=== PATIENT | female | born 1995 | race Hispanic/Latino ===

== ENCOUNTER 2017-09-15 21:51 | Emergency (ER) | payer OTHER, SELFPAY ==
[2017-09-15 22:59] LABS: Absolute Lymphocytes (CBC) 1.7 K/uL (0.7-4.9); Absolute Monocytes 0.6 K/uL (0.1-1.3); Absolute Neutrophil 7.7 K/uL (1.8-8.0); Basophils % 0.3 % (0-1.3); Eosinophils % 0.6 % (0-4.4); Hematocrit 38.7 % (36.0-45.0); Lymphocytes % 17.1 % (15.3-44.8); MCH 29.4 pg (27.0-35.0); MCV 87.8 fL (80-100); MPV 9.7 fL (7.6-11.3); Monocytes % 6.3 % (3.3-12.3); RBC Red Blood Cell Count 4.41 M/uL (3.86-4.86)
[2017-09-15 23:00] LABS: Urine Blood 2+ (NEG); Urine Glucose NEGATIVE (NEG); Urine Protein NEGATIVE (NEG)
[2017-09-15 23:09] LABS: Bicarbonate 23 mEq/L (21-31); Glucose Level 82 mg/dL (65-120); Potassium 3.4 mEq/L (3.6-5.0); Sodium Level 136 mEq/L (135-145)
[2017-09-15 23:10] LABS: BUN Blood Urea Nitrogen 7 mg/dL (6-20)
[2017-09-15] MEDS ORDERED: POTASSIUM 25 MEQ EFFERV TAB ONE (23:55)
--- NOTE | 2017-09-16 00:09 | ER ---
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 States she has not been seen by an OB for this yet bc she is waiting for her insurance. Transition of care: patient was not received from another setting of care. Onset of symptoms was September 15, 2017. Risk Assessment: Do you want to hurt yourself or someone else? Patient reports no desire to harm self or others. Initial Sepsis Screen: Does the patient meet any 2 criteria? No. Patient's initial sepsis screen is negative. Does the patient have a suspected source of infection? No. Patient's initial sepsis screen is negative. Care prior to arrival: None. 22:02 Method Of Arrival: Ambulatory aa1 22:02 Acuity: GRISEL 3 aa1 Triage Assessment: 22:04 General: Appears in no apparent distress. comfortable, Behavior is calm, cooperative, aa1 appropriate for age. 22:38 Pain: Complains of pain in abd cramping. Neuro: No deficits noted. Level of rk2 Consciousness is alert, obeys commands, Oriented to person, place, time, situation. Respiratory: Airway is patent Respiratory effort is even, unlabored, Respiratory pattern is regular, symmetrical. GI: Reports cramping. Derm: Skin is pink, warm \T\ dry. 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 - Social history:: Smoking status: Patient/guardian denies using tobacco. - Ebola Screening: : No symptoms or risks identified at this time. Screenin:37 Abuse screen: Denies threats or abuse. Nutritional screening: No deficits noted. rk2 Tuberculosis screening: No symptoms or risk factors identified. Fall Risk None identified. Assessment: 22:40 GI: Bowel sounds Abd is soft. rk2 23:30 Reassessment: Patient appears in no apparent distress at this time. No changes from rk2 previously documented assessment. Patient and/or family updated on plan of care and expected duration. Pain level reassessed. No needs voiced \T\ this time. Vital Signs: 22:04 BP 109 / 74; Pulse 76; Resp 16; Temp 97.1; Pulse Ox 100% on R/A; Weight 53.98 kg; Pain aa1 06/15; 09/16 00:10 BP 109 / 74; Pulse 77; Resp 17; Pulse Ox 99% on R/A; rk2 ED Course: 09/15 21:52 Patient arrived in ED. am2 22:01 Asher Martin PA is PHCP. cp 22:01 Onur Villarreal MD is Attending Physician. cp 22:04 Triage completed. aa1 22:04 Zofia Mayes, RN is Primary Nurse. rk2 22:04 Arm band placed on right wrist. Patient placed in an exam room, on a stretcher. aa1 22:37 Patient has correct armband on for positive identification. Bed in low position. Call rk2 light in reach. 22:46 US Transvaginal Ob Sent. rk2 22:52 Ultrasound completed. Patient tolerated well. sg3 22:52 Notified TIMBER MANAGEMENT SPECIALIST/RUBI martin. sg3 23:12 US Transvaginal Ob In Process Unspecified. EDMS 09/16 00:41 No provider procedures requiring assistance completed. IV discontinued. rk2 Administered Medications: 09/15 23:54 CANCELLED (order changed): Potassium Chloride 20 mEq PO once rk2 23:54 Drug: Potassium Effervescent Tablet 25 mEq Route: PO; rk2 09/16 00:42 Follow up: Response: No adverse reaction rk2 Outcome: 00:09 Discharge ordered by . cp 00:41 Discharged to home ambulatory. rk2 00:41 Condition: good 00:41 Discharge instructions given to patient, Prescriptions given X 1. 00:43 Patient left the ED. rk2 Signatures: Dispatcher [employer] EDElizabeth Singh, RN RN aa1 Asher Martin PA PA cp Moreno, Amanda am2 Astrid Davies 3 Zofia Mayes RN RN rk2
--- NOTE | 2017-09-16 00:10 | EDPHYS ---
Physician Documentation [facility] Name: Elham Barnard Age: 21 yrs Sex: Female : 1995 Arrival Date: 09/15/2017 Time: 21:52 Bed 27 Private MD: ED Physician Onur Villarreal HPI: 09/15 22:26 This 21 yrs old Female presents to ER via Ambulatory with complaints of cp Abdominal Cramping, Vaginal Bleeding, + Preg <12wks. 22:26 The patient presents to the emergency department with abdominal pain, of the suprapubic cp area. 22:26 The estimated gestational age is 8 weeks. course: care: none, cp Ultrasound: the patient has not had an ultrasound. Previous pregnancies: the patient has never been . Associated signs and symptoms: Pertinent positives: vaginal bleeding, Pertinent negatives: chest pain, dysuria, fever, nausea, shortness of breath, vomiting. 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 Patient report history of left ovarian cyst but no f/u. 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 - Social history:: Smoking status: Patient/guardian denies using tobacco. - Ebola Screening: : No symptoms or risks identified at this time. ROS: 22:30 Constitutional: Negative for body aches, chills, fever, poor PO intake. cp 22:30 Eyes: Negative for injury, pain, redness, and discharge. cp 22:30 ENT: Negative for drainage from ear(s), ear pain, sore throat, difficulty swallowing, difficulty handling secretions. 22:30 Cardiovascular: Negative for chest pain, edema, palpitations. 22:30 Respiratory: Negative for cough, shortness of breath, wheezing. 22:30 Abdomen/GI: Positive for abdominal cramps, of the right lower quadrant and left lower quadrant, Negative for vomiting, diarrhea, constipation, anorexia, dysphagia, black/tarry stool, rectal bleeding. 22:30 : Positive for vaginal bleeding, Negative for urinary symptoms. 22:30 Skin: Negative for cellulitis, rash. 22:30 Neuro: Negative for altered mental status, headache, syncope, near syncope, weakness. 22:30 All other systems are negative. Exam: 22:35 Constitutional: The patient appears in no acute distress, alert, awake, non-toxic, well cp developed, well nourished. 22:35 Head/Face: Normocephalic, atraumatic. cp 22:35 Eyes: Periorbital structures: appear normal, Conjunctiva: normal, no exudate, no injection, Sclera: no appreciated abnormality, Lids and lashes: appear normal, bilaterally. 22:35 ENT: External ear(s): are unremarkable, Nose: is normal, Mouth: Lips: moist, Oral mucosa: pink and intact, moist, Posterior pharynx: is normal, airway is patent, no erythema, no exudate. 22:35 Chest/axilla: Inspection: normal, Palpation: is normal, no crepitus, no tenderness. 22:35 Cardiovascular: Rate: normal, Rhythm: regular, Heart sounds: murmur, not appreciated. 22:35 Respiratory: the patient does not display signs of respiratory distress, Respirations: normal, no use of accessory muscles, no retractions, no splinting, no tachypnea, Breath sounds: are clear throughout, no decreased breath sounds, no stridor, no wheezing. 22:35 Abdomen/GI: Inspection: abdomen appears normal, Bowel sounds: active, all quadrants, Palpation: soft, in all quadrants, mild abdominal tenderness, in the suprapubic area, right lower quadrant and left lower quadrant, rebound tenderness, is not appreciated, voluntary guarding, is not appreciated, involuntary guarding, is not appreciated. 22:35 Back: pain, is absent, ROM is normal. 22:35 Skin: cellulitis, is not appreciated, no rash present. Vital Signs: 22:04 BP 109 / 74; Pulse 76; Resp 16; Temp 97.1; Pulse Ox 100% on R/A; Weight 53.98 kg; Pain aa1 06/15; 09/16 00:10 BP 109 / 74; Pulse 77; Resp 17; Pulse Ox 99% on R/A; rk2 MDM: 09/15 22:02 Patient medically screened. 22:30 Differential diagnosis: STD, threatened Ab, inevitable Ab, retained Ab, ectopic cp . 09/16 00:05 Data reviewed: vital signs, nurses notes, lab test result(s), radiologic studies, cp ultrasound, and as a result, I will discharge patient. 00:05 Counseling: I had a detailed discussion with the patient and/or guardian regarding: the cp historical points, exam findings, and any diagnostic results supporting the discharge/admit diagnosis, lab results, radiology results, the need for outpatient follow up, an OB/Gyne specialist, to return to the emergency department if symptoms worsen or persist or if there are any questions or concerns that arise at home. ED course: VSS. Discussed results of US and labs. Will discharge to home for continued monitoring. 09/15 22:24 Order name: Quantitative Hcg; Complete Time: 00:01 09/16 00:01 Interpretation: Reviewed. 09/15 22:24 Order name: Abo/rh Typing; Complete Time: 23:39 09/15 22:24 Order name: Basic Metabolic Panel; Complete Time: 00:01 09/16 00:01 Interpretation: Normal except: K 3.4. 09/15 22:24 Order name: CBC with Diff; Complete Time: 23:39 09/15 23:39 Interpretation: Normal except: DAVONTE% 75.7. 09/15 22:26 Order name: Urine Dipstick--Ancillary (enter results); Complete Time: 23:06 [facility] 09/16 00:01 Interpretation: Normal except: UBLD 2+. 09/15 22:26 Order name: Urine --Ancillary (enter results); Complete Time: 23:06 [facility] 09/15 22:24 Order name: Urine Test (obtain specimen); Complete Time: 22:27 09/15 22:24 Order name: IV Saline Lock; Complete Time: 22:36 09/15 22:24 Order name: Labs collected and sent; Complete Time: 22:36 09/15 22:24 Order name: NPO; Complete Time: 22:27 09/15 22:24 Order name: Urine Dipstick-Ancillary (obtain specimen); Complete Time: 22:27 cp 09/15 22:42 Order name: US Transvaginal Ob cp Administered Medications: 09/15 23:54 CANCELLED (order changed): Potassium Chloride 20 mEq PO once rk2 23:54 Drug: Potassium Effervescent Tablet 25 mEq Route: PO; rk2 09/16 00:42 Follow up: Response: No adverse reaction rk2 Disposition: 01:40 Co-signature as Attending Physician, Onur Villarreal MD. pkjuan Disposition: 09/16/17 00:09 Discharged to Home. Impression: Threatened , Unspecified ovarian cysts - Left. - Condition is Stable. - Discharge Instructions: Medicines During , Ovarian Cyst, Threatened Miscarriage, Pelvic Rest. - Prescriptions for Vitamin 27- 0.8 mg Oral Tablet - take 1 tablet by ORAL route once daily; 60 tablet. - Medication Reconciliation Form, Thank You Letter, Antibiotic Education, Prescription Opioid Use form. - Follow up: Private Physician; When: 1 week; Reason: Recheck today's complaints. - Problem is new. - Symptoms have improved. Signatures: Dispatcher [employer] EDElizabeth Singh, RN RN aa1 Onur Villarreal MD MD pkl Asher Martin PA PA cp Zofia Mayes RN RN rk2 Corrections: (The following items were deleted from the chart) 09/15 23:54 23:39 Potassium Chloride Liquid 20 mEq PO once ordered. cp rk2 09/16 00:11 00:09 09/16/2017 00:09 Discharged to Home. Impression: Threatened . Condition cp is Stable. Forms are Medication Reconciliation Form, Thank You Letter, Antibiotic Education, Prescription Opioid Use. Follow up: Private Physician; When: 1 week; Reason: Recheck today's complaints. Problem is new. Symptoms have improved. cp 00:43 00:11 09/16/2017 00:09 Discharged to Home. Impression: Threatened ; Unspecified rk2 ovarian cysts - Left. Condition is Stable. Discharge Instructions: Medicines During , Threatened Miscarriage, Pelvic Rest, Ovarian Cyst. Prescriptions for Vitamin 27-0.8 mg Oral Tablet - take 1 tablet by ORAL route once daily; 60 tablet. and Forms are Medication Reconciliation Form, Thank You Letter, Antibiotic Education, Prescription Opioid Use. Follow up: Private Physician; When: 1 week; Reason: Recheck today's complaints. Problem is new. Symptoms have improved. cp
--- NOTE | 2017-09-16 08:01 | RAD REPORT ---
EXAM DESCRIPTION: US - Transvaginal OB - 09/15/2017 11:11 pm CLINICAL HISTORY: with abdominal pain and vaginal bleeding COMPARISON: None. FINDINGS: The uterus 10 x 5 x 7 centimeters. A gestational sac is present within the endometrium. W ithin this is a yolk sac and pole with a crown-rump length 1.6 centimeters. Cardiac activity 14 6 beats per minute. A mucus plug is present within the cervix. A 4.2 left ovarian cyst is seen. The right ovary was not visualized. A small amount of free fluid is present IMPRESSION: Single live intrauterine with an estimated gestational age 8 weeks 0 days CR 04/27/2018
== END 2017-09-16 00:43 | disposition home or self-care (01) ==
LOC: ER 21:51
DX: O20.0 Threatened abortion (principal); N83.202 Unspecified ovarian cyst, left side
CPT/HCPCS: 36415; 76817; 80048; 81003; 81025; 84702; 85025; 86900; 86901; 99283

== ENCOUNTER 2018-04-24 09:29 | Inpatient (IN) | payer OTHER, SELFPAY ==
[2018-04-24] MEDS ORDERED: PROMETHAZINE 25 MG/ML VIAL IM PRN ×2 (16:27)
[2018-04-24] MEDS ORDERED: CARBOPROST TROME 250 MCG/ML IM PRN (16:27)
[2018-04-24] MEDS ORDERED: BUTORPHANOL 1 MG/ML INJ IV PRN (16:27)
[2018-04-24] MEDS ORDERED: Ringers Lactate 1,000 ML IV PRN (16:27)
[2018-04-24] MEDS ORDERED: MEPERIDINE HCL 25 MG/0.5 ML IV PRN (16:27)
[2018-04-24] MEDS ORDERED: METHYLERGONOVINE 0.2MG/ML AMP IM PRN (16:27)
[2018-04-24] MEDS ORDERED: Ringers Lactate 1,000 ML IV ONE (16:42)
[2018-04-24] MEDS ORDERED: Ringers Lactate 1,000 ML IV SCH (17:00)
[2018-04-24] MEDS ORDERED: OXYTOCIN/LR 20 UNIT/1,000 ML BAG IV SCH (17:00)
[2018-04-24 17:07] LABS: RPR Titer ND
[2018-04-24 17:17] LABS: Urine Appearance CLEAR; Urine Bilirubin NEGATIVE (NEG); Urine Blood NEGATIVE (NEG); Urine Color YELLOW; Urine Glucose NEGATIVE (NEG); Urine Protein NEGATIVE (NEG); Urine Urobilinogen 0.2 mg/dL (0.2-1.0); Urine pH 6.5 (5.0-7.0)
[2018-04-24 17:53] LABS: Urine Microscopic Reflex ORDER UMIC
[2018-04-24 18:00] LABS: Urine Bacteria 20-50 /HPF (<20); Urine Culture Reflex Order REFLEXED; Urine RBC <5 /HPF (NONE SEEN)
[2018-04-24] MEDS ORDERED: miSOPROStol 100 MCG TAB VAG SCH ×2 (18:00→23:00)
[2018-04-24 18:03] VITALS: BMI 27.2
[2018-04-24] MEDS ORDERED: ZOLPIDEM TARTRATE 10 MG TABLET PO PRN (19:09)
--- NOTE | 2018-04-24 22:10 | PREOPHP ---
Date of Admission: 04/24/2018 A 22-year-old, primigravida, 39 weeks and 4 days, for Cytotec induction. Full discussion prior to ad mission and again today. FHTs initially showed no variability, but with acoustic stimulation, baby w abby up and is looking good at this point. Cervix is 1 to 1.5 cm, very posterior, but the baby is wel l applied. She is about 40-50% effaced. Cytotec 50 mcg introduced into the vagina and we will intro duce 50 mcg every 6 hours until we get a good labor pattern or until at least cervical ripening has o ccurred. If labor begins, we will stop the Cytotec and begin Pitocin at some point. The patient is Rh positive, immune to Rubella, and negative beta strep screen. Full labor talk given. She knows we will have the baby tomorrow by vaginal delivery or by . CINTIA/LAURI Voice ID: [id number]
[2018-04-25] MEDS ORDERED: NA CIT/CITRIC AC 30 ML ORAL UDC PO ONE (02:38)
[2018-04-25] MEDS ORDERED: CEFAZOLIN/SWI 2gm 2 GM/20 ML SYR ONE (02:56)
[2018-04-25] MEDS ORDERED: CEFAZOLIN 2 GM in NA CHLORIDE 0.9% 100 ML IVPB SCH (03:00)
[2018-04-25] MEDS ORDERED: METOCLOPRAMIDE 10 MG/2mL INJ IV SCH (03:00)
--- NOTE | 2018-04-25 03:05 | PN ---
After consultation with her mother, the patient has agreed to proceed with . Infection; blee ding; anesthetic complications; injury to bladder, bowel, or ureter; postoperative complications; erin ts in legs; pneumonia; and future cesareans were all discussed. The patient knows fully well this do es not constitute all the possible problems that could occur during or following surgery. We will pr oceed expeditiously. CINTIA/LAURI Voice ID: [id number] Report ID: [id number]
[2018-04-25] MEDS ORDERED: CARBOPROST TROME 250 MCG/ML IM ONE (03:12)
[2018-04-25] MEDS ORDERED: METHYLERGONOVINE 0.2MG/ML AMP IM ONE (03:12)
[2018-04-25] MEDS ORDERED: Phenylephrine HCl 10 MG/ML 1 ML VIAL ONE (03:14)
[2018-04-25] MEDS ORDERED: MORPHINE SULFATE/PF 1 MG/ML (10 ML AMP) ONE ×2 (03:14→03:15)
[2018-04-25] MEDS ORDERED: OXYTOCIN 10 UNIT/ML ML IV ONE (03:14)
[2018-04-25] MEDS ORDERED: LIDOCAINE 1% MPF 5 ML VIAL ONE (03:17)
[2018-04-25] MEDS ORDERED: BUPIVACAINE 0.75% (PF) 2 ML SP ONE (03:17)
[2018-04-25] MEDS ORDERED: ACETAMINOPHEN 500 MG TAB PO PRN ×2 (04:02)
[2018-04-25] MEDS ORDERED: ONDANSETRON 4 MG (ODT) TAB PO PRN (04:02)
[2018-04-25] MEDS ORDERED: BISACODYL 10 MG RECTAL SUPP RECT PRN (04:02)
[2018-04-25] MEDS ORDERED: DIPHENHYDRAMINE 25 MG TAB/CAP PO PRN (04:02)
[2018-04-25] MEDS ORDERED: KETOROLAC 30 MG/ML INJ IV PRN (04:02)
[2018-04-25] MEDS ORDERED: ONDANSETRON 4 MG/2 ML VIAL IV PRN (04:02)
[2018-04-25] MEDS ORDERED: IBUPROFEN 200 MG TAB PO PRN (04:02)
[2018-04-25] MEDS ORDERED: Oxycodone HCl/Acetaminophen 1 TAB TAB PO PRN (04:02)
[2018-04-25] MEDS ORDERED: D5LR 1,000 ML with OXYTOCIN 20 UNIT IV SCH ×2 (05:00)
[2018-04-25] MEDS ORDERED: OXYTOCIN/LR 20 UNIT/1,000 ML BAG IV SCH (05:00)
[2018-04-25] MEDS ORDERED: CEFAZOLIN/NS 1gm 1 GM/50 ML BAG IVPB ONE (05:26)
[2018-04-25] MEDS: METHYLERGONOVINE 0.2 MG TAB PO PRN ×4 (06:48→19:32)
--- NOTE | 2018-04-25 07:26 | OP ---
Surgeon: Kenney Flores MD Indications: A 22-year-old primigravida, 39 weeks 5 days, Cytotec induction, had 2 Cytotec inserted, was cisco every 1 to 2 minutes. On admission, it was noted that bldr-bh-jvfv variability was basically absent; however, baby did respond to acoustic stimulation, but quickly went back to the bas [place] of no qiez-zf-oulb variability. The patient was given 1 mg of Stadol during the labor. At 3 c m, we ruptured membranes, clear fluid. Scalp electrode was placed, but baby still showed no beat-to- beat variability, and at that point, did not respond to acoustic stimulation. After thorough discuss ion with the patient and family, it was decided to proceed with section. Infection, blood l oss, anesthetic complications, injury to bladder, bowel, ureter, postoperative complications, clots i n legs, and pneumonia discussed. The patient knows fully well this does not constitute all the possi ble problems that could occur during or following surgery. Ladle Handler Surgeon: Dr. Santoro. Anesthestologist: Dr. Daryn Roa for anesthesia. Dr. Cuellar notified, but was not present at the time of delivery. Procedure In Detail: The patient was taken to surgery. Spinal block performed, prepping and draping , time-out was performed. 2 g of Ancef was ordered for prophylaxis. Pfannenstiel incision was creat ed. The incision was carried to the fascia. The fascia was incised and incision carried transversel y bilaterally. Anterior fascial plane was developed with both blunt and sharp dissection. The under lying rectus muscle was . Peritoneum entered bluntly. Low transverse uterine incision crea tomer. An 8-pound 12-ounce female was delivered through the incision without difficulty. Apgars 9 and 9. Cord blood specimen was obtained. There was a loose nuchal and body cord, but no obvious reason s for decreased or absent rdax-kg-hwgx variability. This is possibly some pre-existing neurological condition, will be evaluated by Pediatrics. Placenta removed. Uterus removed from the peritoneal ca vity and cleared of clot and blood and membranes. Uterus closed with a running locked stitch of 1 ch romic followed by 4 to 5 jwswot-bl-uxkmk stitches in the left angle for complete hemostasis. Uterus, mild to moderate hypotonus. 0.2 mg of Methergine as well as IV drip Pitocin and massage. Estimated blood loss 1100 to 1200 cc. The patient had a very prominent sacral promontory. I do not believe s he would have brought the baby down anyway considering her large size and her small stature. 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 This was drained. Clear fluid, very benign looki ng. Muscles were reapproximated with 0 Vicryl. The fascia was closed with 1 Vicryl, subcutaneous campos tures placed with 2-0 plain. Absorbable tacos placed and then metal tacos. The patient tolerate d all procedures well, was transferred back to her room in good condition. Final Diagnoses: Term intrauterine . Cytotec induction. Nonreassuring heart tones. Primary section. Spinal block anesthesia. Mild uterine hypotonus. CINTIA/LAURI Voice ID: [id number] Report ID: [id number]
[2018-04-25] MEDS ORDERED: FAMOTIDINE 20 MG/2 ML VIAL IV SCH (09:00)
--- NOTE | 2018-04-25 09:47 | PN ---
On admission, the patient has had decreased ehqn-bh-scee variability. No decelerations. Baby did re spond to acoustic stimulation initially. She has had 2 doses of Cytotec cisco every 1 to 2 min utes very firmly. Patient is now 3 cm. We have ruptured membranes. The fluid is clear, but on feta l scalp electrode, heart tones are still flat. On acoustic stimulation, the baby does not adeq uately respond too. She has had 1 dose of Stadol that could play into this. The baby seems to move when touched, but we do not seem to get acceleration. The fact that the fluid is clear and is good, but I just not comfortable with the lack of kkvk-pt-jolr variability. This could be some neurologica l condition that is preceded admission, but since the patient is only 3 cm, we anticipate several mor e hours of labor. I do not feel comfortable continuing to monitor the strip as it is. I have discus sed with the patient and her mother that I think we should proceed with the section that the baby may have a condition already there and the would not help, but several more hours of t he labor with the nonreassuring strip, I do not think it is tenable. If she decides to proceed with labor, we will see to her wishes. CINTIA/LAURI Voice ID: [id number] Report ID: [id number]
[2018-04-25] MEDS ORDERED: CEFAZOLIN 1GM (PREMIX IV) 1 GM/50 ML BAG IV ONE (10:00)
--- NOTE | 2018-04-25 12:53 | PN ---
Postoperatively has done well. Lochia is normal. No complaints at this point. Output is good. Vit al signs are all stable. H and H are pending at approximately 10 o'clock today. We will let patient begin ambulation later today. Possibly get rid of her IV and Mccoy catheter later this afternoon. Full postoperative talk given. CINTIA/LAURI Voice ID: [id number] Report ID: [id number]
[2018-04-25 13:55] LABS: Hematocrit 36.8 % (36.0-45.0)
[2018-04-25 20:52] LABS: RPR (Rapid Plasma Reagin) NON-REACT (NON-REACT)
[2018-04-26] MEDS ORDERED: MAGNESIUM HYDROXIDE 8% 30 ML PO PRN (04:02)
[2018-04-26] MEDS: Oxycodone HCl/Acetaminophen 1 TAB TAB PO PRN ×2 (08:08→12:30)
[2018-04-26 11:47] VITALS: BP 91/51; TEMP 98.1
--- NOTE | 2018-04-26 11:47 | PN ---
Postoperatively, doing quite well. Mccoy and IV are out. She is ambulating. H and H with expected change. Lochia is normal. No post spinal problems. She has had her Tdap immunization during her pr egnancy. If she continues to do well, she will go home tomorrow. Full postop discussion. CINTIA/LAURI Voice ID: [id number] Report ID: [id number]
[2018-04-30 04:26] LABS: HBsAG Nonreactive (Nonreactive)
== END 2018-04-26 14:00 | disposition home or self-care (01) | DRG 788 ==
LOC: 2ND-WC 16:27
PROVIDERS: ADMIT Specialist; ATTEND Specialist
PROC: 10D00Z1 Extraction of Products of Conception, Low, Open Approach (ICD-10-PCS; principal; 2018-04-24)
PROC: 3E0P7VZ Introduction of Hormone into Female Reproductive, Via Natural or Artificial Opening (ICD-10-PCS; 2018-04-24)
PROC: 10907ZC Drainage of Amniotic Fluid, Therapeutic from Products of Conception, Via Natural or Artificial Opening (ICD-10-PCS; 2018-04-24)
DX: O76 Abnormality in fetal heart rate and rhythm complicating labor and delivery (principal); O69.81X0 Labor and delivery complicated by cord around neck, without compression, not applicable or unspecified; O62.1 Secondary uterine inertia; Z3A.39 39 weeks gestation of pregnancy; Z37.0 Single live birth
CPT/HCPCS: 36415; 81003; 81015; 85014; 85018; 85025; 86592; 86901; 87086; 87088; 87340; 88307; J0595; J0690; J2210; J2370; J2550; J2590; J2765